=== PATIENT | male | born 1950 | race Two or more races ===

== ENCOUNTER 2019-10-25 13:53 | Emergency (ER) | payer MEDICARE, MEDICAID ==
[~2019-10-25] VITALS: Ht 167.6 cm; Wt 74.1 kg
--- NOTE | 2019-10-25 14:05 | NUR ---
THIS PT WAS SENT BY NEUROLOGIST AFTER SEEING THEM TODAY FOR MULTIPLE COMPLAINTS INCLUDING N/V, "LEGS THAT FEEL LIKE THEY'RE ASLEEP." PT IS CONCERNED THAT PRIMIDONE IS CAUSING THESE SYMPTOMS AFTER HE TOOK THE FIRST DOSE LAST NIGHT.
--- NOTE | 2019-10-25 14:06 | NUR ---
PT LAYING IN BED, DAUGHTER AT BEDSIDE, NO SIGNS OF DISTRESS, NO COMPLAINTS, ALL NEEDS MET AT THIS TIME. CALL LIGHT WITHIN REACH, LIGHTS OFF TO PROMOTE REST. WILL CONTINUE TO MONITOR.
--- NOTE | 2019-10-25 15:28 | NUR ---
ERP TO BEDSIDE. SHANTAL CARTER AT BEDSIDE TO TRANSLATE. TRANSLATION COMPUTER IN ROOM, PT STATES HE PREFERS A PERSON TO TRANSLATE. ALL QUESTIONS ANSWERED AT THIS TIME. NO SIGNS OF DISTRESS.
[2019-10-25 15:49] LABS: BASOPHILS # (AUTO) 0.02 x10^3/uL (0-0.1); BASOPHILS % (AUTO) 0 % (0-1); EOSINOPHILS # (AUTO) 0.08 x10^3/uL (0-0.4); EOSINOPHILS % (AUTO) 1 % (1-7); LYMPHOCYTES # (AUTO) 1.11 x10^3/uL (1-3.4); LYMPHOCYTES % (AUTO) 10 % (22-44); MD NO; MEAN CORPUSCULAR HEMOGLOBIN 31.9 pg (27.5-34.5); MEAN CORPUSCULAR HGB CONC 34.3 g/dL (33.2-36.2); MEAN CORPUSCULAR VOLUME 92.9 fL (81-97); MEAN PLATELET VOLUME 8.7 fL (7.4-10.4); MONOCYTES # (AUTO) 0.25 x10^3/uL (0.2-0.8); MONOCYTES % (AUTO) 2 % (2-9); NEUTROPHILS # (AUTO) 9.39 x10^3/uL (1.8-6.8); NEUTROPHILS % (AUTO) 86 % (42-75); PLATELET COUNT 226 x10^3/uL (130-400); RED BLOOD COUNT 4.68 x10^6/uL (4.38-5.82); RED CELL DISTRIBUTION WIDTH 12.8 % (9.4-14.8)
[2019-10-25 15:59] LABS: ALANINE AMINOTRANSFERASE 32 U/L (12-78); ALBUMIN 3.6 g/dL (3.4-5.0); ANION GAP 5 mmol/L (5-15); CALCIUM 8.7 mg/dL (8.5-10.1); CHLORIDE 105 mmol/L (98-107); CREATININE 0.86 mg/dL (0.7-1.3)
[2019-10-25 16:02] LABS: ALKALINE PHOSPHATASE 82 U/L (45-117); BILIRUBIN,TOTAL 0.6 mg/dL (0.2-1.0); TOTAL PROTEIN 7.8 g/dL (6.4-8.2)
--- NOTE | 2019-10-25 16:56 | NUR ---
PT TO CT. NO COMPLAINTS, VSS. STATES HE'S FEELING LIKE HE WANTS TO TAKE A NAP. DAUGHTER REMAINS AT BEDSIDE.
--- NOTE | 2019-10-25 17:51 | NUR ---
ERP TO BEDSIDE. SHANTAL CARTER TO TRANSLATE. ALL QUESTIONS ANSWERED.
--- NOTE | 2019-10-25 17:51 | NUR ---
PT CONDITION UNCHANGED.
[2019-10-25 18:12] VITALS: BP 121/73
== END 2019-10-25 18:14 | disposition home or self-care (01) ==
LOC: ED 14:30
DX: R11.2 Nausea with vomiting, unspecified (principal); R42 Dizziness and giddiness; M62.81 Muscle weakness (generalized); R51 Headache
CPT/HCPCS: 36415; 70450; 80053; 83690; 85025; 99285